=== PATIENT | male | born 1975 | race Caucasian/White ===

== ENCOUNTER 2023-11-19 16:48 | Emergency (ER) | payer BC ==
[~2023-11-19] VITALS: Ht 182.9 cm; Wt 113.3 kg
--- NOTE | ~2023-11-19 | EKG ---
[facility] [address] [place], [place] [address] Draft EK completed, results pending confirmation PATIENT NAME: FARZANA GONZALEZ Electrocardiogram DATE OF : 75 PHYSICIAN: PRELIMINARY REPORT #: [id number] REPORT IS CONFIDENTIAL AND NOT TO BE RELEASED WITHOUT AUTHORIZATION
[2023-11-19] MEDS ORDERED: ASPIRIN 81 MG CHEW PO ONE (17:00)
[2023-11-19 17:35] LABS: EOSINOPHILS 1.1 % (0-6); HEMATOCRIT 41.7 % (35.0-50.0); HEMOGLOBIN 14.7 g/dL (12.0-18.0); MCH 28.3 (27-36); MCHC 35.3 g/dl (30-36); MCV 80.2 fl (81-99)
[2023-11-19 17:38] LABS: BASOPHILS 0.3 % (0-2); LYMPHOCYTES 13.4 % (24-44); MONOCYTES 7.2 % (0-12); PLATELET COUNT 189 K/uL (140-440); RDW 13.1 (10.5-15.0)
[2023-11-19] MEDS ORDERED: NORVASC5 MG PO (17:42)
[2023-11-19] MEDS ORDERED: COZAAR100 MG PO (17:42)
[2023-11-19] MEDS ORDERED: SIMVASTATIN20 MG PO (17:42)
[2023-11-19] MEDS ORDERED: TRAZODONE HCL50 MG PO (17:43)
[2023-11-19] MEDS ORDERED: LEXAPRO20 MG PO (17:43)
[2023-11-19] MEDS ORDERED: PROTONIX40 MG PO (17:43)
[2023-11-19 17:53] LABS: ALBUMIN 3.8 g/dL (3.4-5.0); ALBUMIN/GLOBULIN RATIO 1.09 (1.1-2.4); ANION GAP 11.9 (7-21); BILIRUBIN, TOTAL 0.3 ng/dL (0.2-1.0); BUN/CREATININE RATIO 11.45 (6.0-28.6); CALCIUM 8.8 mg/dL (8.5-10.1); CREATININE, SERUM 0.96 mg/dL (0.70-1.30); POTASSIUM 2.9 mmol/L (3.5-5.1); PROTEIN, TOTAL 7.3 g/dL (6.4-8.2)
[2023-11-19] MEDS ORDERED: SUCRALFATE 1 GM TAB PO ONE (19:15)
[2023-11-19] MEDS ORDERED: POTASSIUM CHLORIDE 20 MEQ/15 ML CUP PO ONE (19:15)
[2023-11-19] MEDS ORDERED: POTASSIUM CHLORIDE 10 MEQ/100 ML BAG IV ONE (19:30)
[2023-11-19] MEDS ORDERED: CARAFATE1 GM PO (20:35)
[2023-11-19] MEDS ORDERED: POTASSIUM40 MEQ/15 PO (20:35)
[2023-11-19 21:00] VITALS: BP 127/81
== END 2023-11-19 21:04 | disposition home or self-care (01) ==
LOC: ED 16:48
PROVIDERS: Emergency Medicine
DX: K21.9 Gastro-esophageal reflux disease without esophagitis (principal); E87.6 Hypokalemia; I10 Essential (primary) hypertension; Z79.899 Other long term (current) drug therapy
CPT/HCPCS: 36415; 71045; 80053; 83735; 84484; 85025; 93005; 93010; 96374; 99285-25; A9270; J3480